=== PATIENT | female | born 1985 | race Caucasian/White ===

== ENCOUNTER → 2016-12-09 | Outpatient (CLI) | payer BC ==
--- NOTE | 2016-12-09 08:15 | US ---
EXAMINATION TYPE: US OB anatomy transabd DATE OF EXAM: 12/09/2016 7:43 AM COMPARISON: None CLINICAL HISTORY: O36.62X0 Large for dates TECHNIQUE: OBTA GESTATIONAL AGE / DATING Physician Established: (18 weeks/0 days) EDC: 05/12/2017 Dates by LMP: Unknown Dates by First Scan: RAND BUTTER here Dates by Current Scan: (18 weeks/1 days) EDC: 05/11/2017 SURVEY IUP: Single PLACENTA: Anterior PREVIA: Marginal CARLOS: 12.3 cm Normal CERVICAL LENGTH (transabdominal: norm > 3.0cm): 4.2cm BIOMETRY PRESENTATION: Variable LIE: Longitudinal BPD: 4.0 cm 18 weeks / 1 days HC: 14.5 cm 17 weeks / 5 days AC: 13.1 cm 18 weeks / 4 days FL: 2.7 cm 18 weeks / 1 days ESTIMATED WEIGHT IN GRAMS: 235 grams ESTIMATED WEIGHT IN LBS/OZS: 0 lbs. 8 oz. WEIGHT PERCENTAGE BASED ON ESTABLISHED DATES: 66% HC/AC: 1.1 Normal FL/AC: 20.5 Normal HEART RATE: 145 bpm RHYTHM: Normal ANATOMY SEEN (within normal limits): * Lateral Vent (< 1 cm) 0.6 cm * Cisterna Magna (< 1.1 cm) 0.3 cm * Nuchal Fold (< 0.6 cm) 0.2 cm * Cerebellum (varies with age) 1.8 cm Choroid Plexus (bilateral) Midline Falx Cavus Septi Pellucidi Four Chamber Heart Outflow tracts: LVOT/RVOT Stomach Situs Nose / Lips Kidneys (bilateral) Bladder Cord Insert Three Vessel Cord Arms (bilateral) Legs (bilateral) ANATOMY NOT SEEN: Diaphragm Longitudinal Spine Transverse Spine TECHNOLOGIST IMPRESSION: Viable 18w1d fetus seen with normal growth growth, patient does need to com e back to assess spine, diaphragm and recheck placenta postioning. OB callback appt is for 12/28/2016. Single live intrauterine gestation is noted. heart tones are regular measure 145 bpm which is w ithin normal limits. A variable presentation to fetus is seen during real-time scanning. There is no ultrasound evidence for placenta previa. Placenta is near cervical os and felt marginal in position c urrently. Amniotic fluid index is within normal limits. biometry measurements are within normal limits as detailed above. Detailed anatomical survey sh ows no suspicious abnormality during real-time scanning though visualization of diaphragm and spine i n 2 views is noted suboptimal per technologist. Saved images also do not show kidneys well which some times happens in the early second trimester. IMPRESSION: As above
== END | disposition home or self-care (01) ==
LOC: RADUSWWP 06:58
PROVIDERS: ATTEND Obstetrics & Gynecology
DX: O36.62X0 Maternal care for excessive fetal growth, second trimester, not applicable or unspecified (principal); Z3A.18 18 weeks gestation of pregnancy
CPT/HCPCS: 76811

== ENCOUNTER → 2016-12-28 | Outpatient (CLI) | payer BC ==
--- NOTE | 2016-12-28 09:34 | US ---
EXAMINATION TYPE: US OB Call Back DATE OF EXAM: 12/28/2016 8:19 AM COMPARISON: 12/09/2016 CLINICAL HISTORY: OB Callback Spine. GESTATIONAL AGE / DATING Dates by Initial Survey Scan: (20 weeks/5 days) EDC: 05/12/2017 HEART RATE: 160 bpm RHYTHM: normal ANATOMY SEEN (second anatomic survey look): Longitudinal Spine: wnl Transverse Spine: wnl Diaphragms not evaluated. Placenta was not evaluated. TECHNOLOGIST IMPRESSION: Spine seen with skin line and appears wnl IMPRESSION: Additional views for spine were obtained as described
== END | disposition home or self-care (01) ==
LOC: RADUSWWP 07:56
PROVIDERS: ATTEND Obstetrics & Gynecology
DX: Z36 Encounter for antenatal screening of mother (principal)

== ENCOUNTER → 2016-12-29 | Outpatient (CLI) | payer BC | LOC: LABWHC1 09:31 | PROVIDERS: ATTEND Obstetrics & Gynecology | DX: R00.2 Palpitations (principal) | CPT/HCPCS: 36415; 84439; 84443 ==

== ENCOUNTER 2017-01-17 10:53 | Emergency (ER) | payer BC ==
[2017-01-17] MEDS ORDERED: SODIUM CHLORIDE 0.9% 1,000 ML IV STA (11:35)
[2017-01-17] MEDS ORDERED: SODIUM CHLORIDE 0.9% 500 ML IV STA (11:35)
--- NOTE | 2017-01-17 11:42 | ED ---
General Adult HPI - General Chief complaint: Extremity Problem,Nontraumatic Stated complaint: LEG CRAMPING AND SWOLLEN, 23 WEEKS PREG Time Seen by Provider: 01/17/17 11:23 Source: patient, family, RN notes reviewed, old records reviewed Mode of arrival: ambulatory Limitations: no limitations - History of Present Illness Initial comments: Chief complaint history of present illness a 31-year-old female here with family. The patient has several complaints the first of which is headache has not gotten much better with Tylenol for the past 5 days. No stiff neck or fever. Also complaint of mild shortness of breath on again off again for 6 days. Also some numbness and mild swelling to her left lower extremity. Discomfort to the calf. Mildly positive Homans sign but discomfort more laterally than medially. No injuries. The patient's also approximately 24 weeks . No abdominal pain no vaginal discharge no bleeding. - Related Data Home Medications Medication Instructions Recorded Confirmed Nitrofurantoin Monohyd/M-Cryst 100 mg PO Q12HR 01/17/17 01/17/17 [Macrobid] Pnv with Ca,No.72/Iron/FA 1 tab PO DAILY 01/17/17 01/17/17 [ Plus Tablet] Previous Rx's Medication Instructions Recorded Acetaminophen-Codeine 300-30mg 1 tab PO Q8H PRN #10 tablet 01/17/17 [Tylenol #3] Allergies Allergy/AdvReac Type Severity Reaction Status Date / Time cefaclor [From Ceclor] AdvReac Unknown Verified 01/17/17 13:08 Childhood Penicillins AdvReac Unknown Verified 01/17/17 13:08 Childhood Review of Systems ROS Statement: Those systems with pertinent positive or pertinent negative responses have been documented in the HPI. Review of systems no visual acuity changes mild headache. No stiff neck no chest pain but slightly short of breath for approximately 6 days. No abdominal pain no nausea vomiting diarrhea or urinary problems. Mild swelling and mild discomfort with mild numbness to her left calf from her knee to her foot. All systems are reviewed. Past medical problems none. Surgeries tonsils adenoids and a melanoma removed on her right flank 5 years ago. Family history no cancers. Patient has ALLERGIES to cefaclor and penicillins a cause hives. She does smoke strongly encouraged to stop. Denies alcohol use ROS Other: All systems not noted in ROS Statement are negative. Past Medical History Past Medical History: No Reported History, Cancer Additional Past Medical History / Comment(s): SKIN History of Any Multi-Drug Resistant Organisms: None Reported Past Surgical History: Adenoidectomy, Tonsillectomy Additional Past Surgical History / Comment(s): melanoma Past Psychological History: No Psychological Hx Reported Smoking Status: Current every day smoker Past Alcohol Use History: None Reported, Rare Past Drug Use History: None Reported General Exam - General Exam Comments Initial Comments: General: The patient is awake and alert, several complaints of mild headache, slight short of breath, discomfort now swelling left leg. Vital signs show temperature 97.6 pulse 108 respiratory rate 16 pulse ox 99% room air blood pressure 135/78. Mildly elevated systolic noted. Patient will be following up with her family physician this week. Eye: Pupils are equal, round and reactive to light, extra-ocular movements are intact ; there is normal conjunctiva bilaterally. No signs of icterus. Ears, nose, mouth and throat: There are moist mucous membranes and no oral lesions. Neck: The neck is supple, there is no tenderness . Cardiovascular: Tachycardic heart rate, 108. No murmur, rub or gallop is appreciated. Respiratory: Lungs are clear to auscultation, respirations are non-labored, breath sounds are equal. No wheezes, stridor, rales, or rhonchi. Gastrointestinal: Soft, non-distended, non-tender abdomen without masses or organomegaly noted. There is no rebound or guarding present. No CVA tenderness. Bowel sounds are unremarkable. Uterus palpable just above the umbilicus. heart tones normal per nurse. Back: There is no tenderness to palpation in the midline. There is no obvious deformity. No rashes noted. 5 cm healed scar right flank where she had a melanoma removed 5 years ago. Musculoskeletal: Neurovascular status of both upper or lower extremities normal. Left leg slightly more swollen than the right. Mildly positive Homans sign more to the lateral aspect of the calf. No swelling to the joints. Neurological: No neuro deficits complained of more noted on examination. Skin is warm and dry and no rashes or lesions are noted. Limitations: no limitations Course Vital Signs 01/17/17 11:00 Temperature 97.6 F Pulse Rate 108 H Respiratory 16 Rate Blood Pressure 135/78 O2 Sat by Pulse 99 Oximetry Medical Decision Making - Medical Decision Making Medical decision making the patient's white count 14.7 hemoglobin 11 hematocrit 33 with an INR 1.0. D-dimer mildly elevated at 0.72, potassium 3.6 with a BUN of 5 creatinine 0.49 the GFR greater than 60. Glucose 83. Troponin less than 0.012. Ultrasound of the left leg was done and reviewed by radiologist his final impression is negative for DVT left leg. No diagnostic evidence of DVT is visualized. As read by Dr. Bryan Patient had an EKG done heart rate only 81 with normal sinus rhythm. Reexamination patient states that she's less short of breath when she initially came in. We did discuss the negative ultrasound of the leg i.e. negative for DVT. There is no wheezing. She will be given some Tylenol threes for the headache with Tylenol is not strong enough at this time. Patient strongly encouraged stop smoking. Follow-up with family physician. If she develops shortness of breath, increased heart rate or more swelling to her legs which is been told to keep elevated she is to return emergency room. Otherwise follow- up with family physician and her [facility] - Lab Data Result diagrams: 01/17/17 12:12 01/17/17 12:12 Lab Results 01/17/17 01/17/17 01/17/17 Range/Units 12:12 12:12 12:12 WBC 14.7 H (3.8-10.6) k/uL RBC 3.61 L (3.80-5.40) m/uL Hgb 11.3 L (11.4-16.0) gm/dL Hct 33.0 L (34.0-46.0) % MCV 91.5 (80.0-100.0) fL MCH 31.2 (25.0-35.0) pg MCHC 34.1 (31.0-37.0) g/dL RDW 13.5 (11.5-15.5) % Plt Count 317 (150-450) k/uL Neutrophils % 74 % Lymphocytes % 18 % Monocytes % 4 % Eosinophils % 2 % Basophils % 0 % Neutrophils # 10.9 H (1.3-7.7) k/uL Lymphocytes # 2.7 (1.0-4.8) k/uL Monocytes # 0.6 (0-1.0) k/uL Eosinophils # 0.2 (0-0.7) k/uL Basophils # 0.0 (0-0.2) k/uL PT (9.0-12.0) sec INR (<1.1) APTT (22.0-30.0) sec D-Dimer (<0.60) mg/L FEU Sodium 140 (137-145) mmol/L Potassium 3.6 (3.5-5.1) mmol/L Chloride 109 H (98-107) mmol/L Carbon Dioxide 22 (22-30) mmol/L Anion Gap 9 mmol/L BUN 5 L (7-17) mg/dL Creatinine 0.49 L (0.52-1.04) mg/dL Est GFR (MDRD) Af Amer >60 (>60 ml/min/1.73 sqM) Est GFR (MDRD) Non-Af >60 (>60 ml/min/1.73 sqM) Glucose 83 (74-99) mg/dL Calcium 9.2 (8.4-10.2) mg/dL Total Bilirubin 0.3 (0.2-1.3) mg/dL AST 19 (14-36) U/L ALT 28 (9-52) U/L Alkaline Phosphatase 79 (38-126) U/L Total Creatine Kinase 27 L (30-135) U/L CK-MB (CK-2) <0.2 (0.0-2.4) ng/mL CK-MB (CK-2) Rel Index Troponin I <0.012 (0.000-0.034) ng/mL Total Protein 6.0 L (6.3-8.2) g/dL Albumin 3.2 L (3.5-5.0) g/dL 01/17/17 Range/Units 12:12 WBC (3.8-10.6) k/uL RBC (3.80-5.40) m/uL Hgb (11.4-16.0) gm/dL Hct (34.0-46.0) % MCV (80.0-100.0) fL MCH (25.0-35.0) pg MCHC (31.0-37.0) g/dL RDW (11.5-15.5) % Plt Count (150-450) k/uL Neutrophils % % Lymphocytes % % Monocytes % % Eosinophils % % Basophils % % Neutrophils # (1.3-7.7) k/uL Lymphocytes # (1.0-4.8) k/uL Monocytes # (0-1.0) k/uL Eosinophils # (0-0.7) k/uL Basophils # (0-0.2) k/uL PT 10.3 (9.0-12.0) sec INR 1.0 (<1.1) APTT 23.3 (22.0-30.0) sec D-Dimer 0.72 H (<0.60) mg/L FEU Sodium (137-145) mmol/L Potassium (3.5-5.1) mmol/L Chloride (98-107) mmol/L Carbon Dioxide (22-30) mmol/L Anion Gap mmol/L BUN (7-17) mg/dL Creatinine (0.52-1.04) mg/dL Est GFR (MDRD) Af Amer (>60 ml/min/1.73 sqM) Est GFR (MDRD) Non-Af (>60 ml/min/1.73 sqM) Glucose (74-99) mg/dL Calcium (8.4-10.2) mg/dL Total Bilirubin (0.2-1.3) mg/dL AST (14-36) U/L ALT (9-52) U/L Alkaline Phosphatase (38-126) U/L Total Creatine Kinase (30-135) U/L CK-MB (CK-2) (0.0-2.4) ng/mL CK-MB (CK-2) Rel Index Troponin I (0.000-0.034) ng/mL Total Protein (6.3-8.2) g/dL Albumin (3.5-5.0) g/dL Disposition Clinical Impression: Headache Disposition: HOME SELF-CARE Condition: Stable Instructions: Tension Headache (ED) Additional Instructions: Take Tylenol 3 for headaches. Follow-up with family physician and [facility]. Stop smoking soon as he can. If he develops shortness of breath or worsening of discomfort. Extremities return emergency room Prescriptions: Acetaminophen-Codeine 300-30mg [Tylenol #3] 1 tab PO Q8H PRN #10 tablet PRN Reason: Pain Time of Disposition: 14:08
[2017-01-17 12:23] LABS: Basophils % (A) 0 %; CHCM 35.2; Eosinophils # (A) 0.2 k/uL (0-0.7); Eosinophils % (A) 2 %; HDW 2.65; HGB 11.3 gm/dL (11.4-16.0); Luc # (Auto) 0.27; Luc % (Auto) 2; Lymphocytes # (A) 2.7 k/uL (1.0-4.8); Lymphocytes % (A) 18 %; MCH 31.2 pg (25.0-35.0); MCHC 34.1 g/dL (31.0-37.0); MCV 91.5 fL (80.0-100.0); Mean Platelet Volume 7.5; Monocytes # (A) 0.6 k/uL (0-1.0); Monocytes % (A) 4 %; Neutrophils # (A) 10.9 k/uL (1.3-7.7); Neutrophils % (A) 74 %; RBC 3.61 m/uL (3.80-5.40); RDW 13.5 % (11.5-15.5); WBC 14.7 k/uL (3.8-10.6); WBC (Perox) 15.18
[2017-01-17 12:37] LABS: Partial Thromboplastin Time 23.3 sec (22.0-30.0); Prothrombin Time 10.3 sec (9.0-12.0)
[2017-01-17 12:38] LABS: ALT 28 U/L (9-52); AST 19 U/L (14-36); Alkaline Phosphatase 79 U/L (38-126); Anion Gap 9 mmol/L; Blood Urea Nitrogen 5 mg/dL (7-17); Calcium 9.2 mg/dL (8.4-10.2); Carbon Dioxide 22 mmol/L (22-30); Chloride 109 mmol/L (98-107); Glucose 83 mg/dL (74-99); Non-African American GFR(MDRD) >60 (>60 ml/min/1.73 sqM); Potassium 3.6 mmol/L (3.5-5.1); Sodium 140 mmol/L (137-145); Total Bilirubin 0.3 mg/dL (0.2-1.3)
--- NOTE | 2017-01-17 12:43 | US ---
EXAMINATION TYPE: US venous doppler duplex LE LT DATE OF EXAM: 01/17/2017 12:36 PM COMPARISON: NONE CLINICAL HISTORY: Enough legs mildly swollen, numb. Patient states left leg feels numb and is swollen SIDE PERFORMED: Left VESSELS IMAGED: External Iliac Vein (EIV) Common Femoral Vein Deep Femoral Vein Greater Saphenous Vein * Femoral Vein Popliteal Vein Proximal Calf Veins (* superficial vessels) patient is approximately 26 weeks . Left Leg: Negative for DVT IMPRESSION: 1. No diagnostic evidence of DVT as visualized
[2017-01-17 12:45] LABS: Creatine Kinase 27 U/L (30-135)
[2017-01-17 12:57] LABS: Creatine Kinase MB <0.2 ng/mL (0.0-2.4); Troponin I <0.012 ng/mL (0.000-0.034)
[2017-01-17] MEDS ORDERED: Acetaminophen-Codeine 300-30mg TAB PO STA (14:07)
[2017-01-17 14:20] VITALS: BP 121/65; PULSE 86; RESP 18; TEMP 96.8
== END 2017-01-17 14:19 | disposition home or self-care (01) ==
LOC: EC 10:53
DX: O26.892 Other specified pregnancy related conditions, second trimester (principal); O99.332 Smoking (tobacco) complicating pregnancy, second trimester; R51 Headache; M79.89 Other specified soft tissue disorders; R20.0 Anesthesia of skin; F17.200 Nicotine dependence, unspecified, uncomplicated; Z85.820 Personal history of malignant melanoma of skin; Z88.0 Allergy status to penicillin; Z3A.24 24 weeks gestation of pregnancy; Z88.1 Allergy status to other antibiotic agents
CPT/HCPCS: 36415; 80053; 82550; 82553; 84484; 85025; 85379; 85610; 85730; 93005; 96360; 96361; 99284

== ENCOUNTER → 2017-02-01 | Outpatient (CLI) | payer BC ==
[2017-02-01 11:57] LABS: CH 31.6; CHCM 33.9; HCT 32.8 % (34.0-46.0); HDW 2.69; HGB 11.2 gm/dL (11.4-16.0); MCH 31.9 pg (25.0-35.0); MCV 93.8 fL (80.0-100.0); Mean Platelet Volume 7.8; WBC 17.5 k/uL (3.8-10.6)
== END ==
LOC: LABWHC1 10:35
PROVIDERS: ATTEND Obstetrics & Gynecology
DX: Z34.92 Encounter for supervision of normal pregnancy, unspecified, second trimester (principal); Z3A.00 Weeks of gestation of pregnancy not specified
CPT/HCPCS: 36415; 82950; 85027

== ENCOUNTER 2017-02-16 02:54 | Observation (INO) | payer BC ==
[2017-02-16 03:17] LABS: Appearance,Urine Clear (Clear); Bacteria,Urine Moderate /hpf; Bilirubin,Urine Negative (Negative); Glucose,Urine (UA) Negative (Negative); Ketones,Urine 1+ (Negative); Leukocyte Esterase,Urine Trace (Negative); Mucus,Urine Rare /hpf; Nitrite,Urine Negative (Negative); Particle Count 4860; Protein,Urine Trace (Negative); RBC,Urine 2 /hpf (0-5); Specific Gravity,Urine 1.007 (1.001-1.035); Squamous Epithelial Cell,Urine 2 /hpf (0-4); UA Billing (MACRO vs. MICRO) MICRO; Urobilinogen,Urine <2.0 mg/dL (<2.0); WBC,Urine 4 /hpf (0-5)
[2017-02-16] MEDS ORDERED: BUTORPHANOL 1 MG/ML 1 ML VIAL IV PRN (03:40)
[2017-02-16] MEDS ORDERED: LACTATED RINGERS 1,000 ML IV SCH ×2 (03:45→04:00)
[2017-02-16] MEDS: CLINDAMYCIN 600 MG in DEXTROSE 5% IN WATER 50 ML IVPB SCH ×4 (04:16→13:09)
[2017-02-16 04:40] VITALS: BP 130/78; PULSE 97; RESP 15; TEMP 96.9
[2017-02-16 04:42] VITALS: BMI 28.0
--- NOTE | 2017-02-16 05:42 | US ---
EXAM: US Retroperitoneal Limited, Renal. CLINICAL HISTORY: Reason: rule out kidney stones TECHNIQUE: Real-time ultrasound of the retroperitoneum (limited) with image documentation. COMPARISON: CT abdomen pelvis 10/16/15 FINDINGS: Right kidney: 11.0 x 4.6 x 4.8 cm No calculus detected sonographically. No hydronephrosis. Left kidney: 12.3 x 6.4 x 5.2 cm No calculus detected sonographically.. No hydronephrosis. IMPRESSION: No renal calculus detected sonographically. No hydronephrosis.
--- NOTE | 2017-02-16 05:50 | US ---
EXAM: US After First Trimester, Transabdominal. CLINICAL HISTORY: Reason: abdominal pain, previa TECHNIQUE: Real-time transabdominal obstetrical ultrasound of the maternal pelvis and a second or third trimester with image documentation. COMPARISON: Pelvic ultrasound, 12/09/16 and 12/28/16 FINDINGS: Fetus: Nye . Heart rate: heart rate 153 bpm. Presentation: Breech presentation. Placenta: Placenta anterior. No evidence of placenta previa. Amniotic fluid: CARLOS within normal limits, 13.1 cm. Anatomy: Intracranial/face anatomy not seen. Spinal anatomy not seen. Abdominal anatomy not seen. Extremities not seen. Four-chamber heart not seen. Umbilical cord not seen. BIOMETRICS Gestational age by US: 28 weeks 1 day, congruent with provided dates (27 weeks 6 days). EFW: 1205 g (2 lbs. 11 oz.) BPD: 7.2 cm, 28 weeks 5 days HC: 27.2 cm, 29 weeks 4 days AC: 24.1 cm, 28 weeks 3 days FL: 5.2 cm, 27 weeks 5 days MATERNAL: Uterus: Unremarkable. Cervix: Cervical length within normal limits, measuring 4 cm. Free fluid: No free fluid. IMPRESSION: 1. Nye in breech presentation. No evidence of placenta previa. 2. Ultrasound measurements compatible with provided dates.
[2017-02-16] MEDS: Acetaminophen-Codeine 300-30mg TAB PO PRN ×2 (08:14→12:44)
--- NOTE | 2017-02-16 13:32 | P.HPOB ---
History of Present Illness H&P Date: 02/16/17 Chief Complaint: Left flank pain This is a 31-year-old female 2 para 1 with an estimated date of confinement of 05/12/2017, estimated gestational age of 28 weeks who presented to labor and delivery with complaints of left flank pain that wrapped around to the left frontal abdomen that began last night and became stronger to the point that she was vomiting. She denied any urinary urgency or painful urination. She admitted to good movement. She denied any contractions. course has been complicated by newly diagnosed gestational diabetes and she has an appointment with maternal medicine this week to start checking sugars. Obstetrical history: . History of 1 vaginal delivery at term with no complications. Gynecologic history: No history of sexual transmitted diseases. Review of Systems Constitutional: Denies chills, Denies fever Cardiovascular: Reports palpitations, Reports shortness of breath Respiratory: Denies cough Gastrointestinal: Reports abdominal pain (Left lower quadrant abdominal pain), Reports nausea, Reports vomiting Genitourinary: Reports pelvic pain (Left pelvic), Reports , Denies abnormal vaginal bleeding Musculoskeletal: Reports low back pain (Left flank pain) Neurological: Denies numbness, Denies weakness Past Medical History Past Medical History: Cancer (History of melanoma on her back) Additional Past Medical History / Comment(s): SKIN History of Any Multi-Drug Resistant Organisms: None Reported Past Surgical History: Adenoidectomy, Tonsillectomy Additional Past Surgical History / Comment(s): melanoma excision; removal of the jaw cyst Past Anesthesia/Blood Transfusion Reactions: No Reported Reaction Past Psychological History: No Psychological Hx Reported Smoking Status: Current every day smoker Past Alcohol Use History: None Reported, Rare Past Drug Use History: None Reported - Past Family History Mother Family Medical History: No Reported History Medications and Allergies Home Medications Medication Instructions Recorded Confirmed Type Pnv with Ca,No.72/Iron/FA 1 tab PO DAILY 01/17/17 01/17/17 History [ Plus Tablet] Allergies Allergy/AdvReac Type Severity Reaction Status Date / Time cefaclor [From Ceclor] AdvReac Unknown Verified 02/16/17 03:01 Childhood Penicillins AdvReac Unknown Verified 02/16/17 03:01 Childhood Exam Osteopathic Statement: *. No significant issues noted on an osteopathic structural exam other than those noted in the History and Physical/Consult. - Vital Signs Vital signs: Vital Signs Temp Pulse Resp BP Pulse Ox 02/16/17 03:02 96.9 F L 97 15 130/78 100 Intake and Output 02/15/17 02/16/17 02/16/17 22:59 06:59 14:59 Output Total 600 Balance -600 Output: Urine 600 Other: Weight 71.668 kg HEENT: Within normal limits Heart: Regular rate and rhythm Lungs: Clear to auscultation bilaterally Abdomen: With fundus nontender. Tenderness is noted in the left flank and left lower quadrant areas. No guarding or rebound is noted. heart tones: Reactive Contractions: None Extremities: Negative Homans, some mild edema Results Abnormal Lab Results - Last 24 Hours (Table) 02/16/17 Range/Units 02:50 Urine Protein Trace H (Negative) Urine Ketones 1+ H (Negative) Urine Blood Trace H (Negative) Ur Leukocyte Esterase Trace H (Negative) Urine Bacteria Moderate H (None) /hpf Urine Mucus Rare H (None) /hpf Assessment and Plan (1) Acute left flank pain Narrative/Plan: Probable kidney stone Status: Acute Plan: Will admit and IV hydrate along with IV pain medications. Will strain all urine. Nonstress test every shift. Kidney ultrasound is performed and is normal.
--- NOTE | 2017-02-16 13:35 | P.DS ---
Providers Date of admission: 02/16/17 03:50 Expected date of discharge: 02/16/17 Attending physician: Gordon Thornton Primary care physician: Gordon Thornton - Discharge Diagnosis(es) (1) Acute left flank pain Current Visit: Yes Status: Acute Hospital Course: The patient was admitted and given IV hydration along with one dose of IV Stadol area her pain did decrease significantly. She has required a couple doses of Tylenol No. 3 which does take away most of the pain. She has passed a little bit of sediment but no stone yet. She is ambulating and moving around. She is tolerating liquids but doesn't have much better appetite at this time. She feels comfortable going home and feels that she can do the same thing at home that she is doing in the hospital and since the Tylenol No. 3 is helping with her pain she would prefer to be at home. Kidney ultrasound was normal and obstetrical ultrasound was normal. Urinalysis did show blood and ketone. Patient Condition at Discharge: Stable Plan - Discharge Summary New Discharge Prescriptions: Acetaminophen-Codeine 300-30mg [Tylenol w/codeine #3] 1 - 2 each PO Q4HR PRN # 30 tab PRN Reason: Pain Discharge Medication List Pnv with Ca,No.72/Iron/FA [ Plus Tablet] 1 tab PO DAILY 01/17/17 [ History] Acetaminophen-Codeine 300-30mg [Tylenol w/codeine #3] 1 - 2 each PO Q4HR PRN # 30 tab 02/16/17 [Rx] Follow up Appointment(s)/Referral(s): Natalie Ravi DO [Doctor of Osteopathic Medicine] - 1 Week Activity/Diet/Wound Care/Special Instructions: Patient encouraged to ambulate. She is advised to strain all urine. She is advised to return to the hospital if any further pain that requires more than Tylenol 3 or significant nausea vomiting. She is advised to keep her appointment with maternal medicine on . She will return to the office to see me in one week. Discharge Disposition: HOME SELF-CARE
== END 2017-02-16 14:02 | disposition home or self-care (01) ==
LOC: FBPOP 02:54 → 4FBP 03:50
PROVIDERS: ADMIT Obstetrics & Gynecology; ATTEND Obstetrics & Gynecology
DX: O26.893 Other specified pregnancy related conditions, third trimester (principal); Z3A.28 28 weeks gestation of pregnancy; O24.419 Gestational diabetes mellitus in pregnancy, unspecified control; Z85.820 Personal history of malignant melanoma of skin; O99.333 Smoking (tobacco) complicating pregnancy, third trimester; F17.200 Nicotine dependence, unspecified, uncomplicated; Z88.0 Allergy status to penicillin; Z88.1 Allergy status to other antibiotic agents
CPT/HCPCS: 99213; 96361; 96365; 81001; 76805; 76770; G0378; J0595

== ENCOUNTER → 2017-03-09 | Outpatient (CLI) | payer BC ==
[2017-03-09 12:22] LABS: Hemoglobin A1C 5.3 % (4.2-6.1)
== END | disposition home or self-care (01) ==
LOC: LABWHC1 10:54
PROVIDERS: ATTEND Pediatrics Neonatal-Perinatal Medicine
DX: O24.419 Gestational diabetes mellitus in pregnancy, unspecified control (principal); Z3A.00 Weeks of gestation of pregnancy not specified
CPT/HCPCS: 36415; 82947; 83036

== ENCOUNTER 2017-04-18 17:54 | Outpatient (CLI) | payer BC ==
[2017-04-18 19:03] VITALS: BP 131/76; PULSE 107; RESP 20; TEMP 97.4
--- NOTE | 2017-04-19 06:43 | P.MSEPDOC ---
Presenting Problems - Arrival Data Date of Arrival on Unit: 04/18/17 Time of Arrival on Unit: 17:54 Mode of Transport: Ambulatory - Complaint OB-Reason for Admission/Chief Complaint: NST Medical History - Information : 2 Para: 1 Term: 1 : 0 Abortions: Spontaneous or Elective: 0 Number of Living Children: 1 - Gestational Age Expected Date of Delivery: 05/12/17 Gestational Age by YESIKA (wks/days): 36 Weeks and 5 Days - History Complications: GDM, Smoker Review of Systems - Review of Systems Constitutional: No problems Breast: No problems ENT: No problems Cardiovascular: No problems Respiratory: No problems Gastrointestinal: No problems Genitourinary: No problems Musculoskeletal: No problems Neurological: No problems Skin: No problems Comment: tonsil 2002 melanoma lower back 2012, cyst jaw 2013 Vital Signs - Temperature Temperature: 97.4 F Temperature Source: Skin - Pulse Right Brachial Pulse Rate: 107 Pulse Assessment Method: Automatic Cuff - Respirations Respiratory Rate: 20 - Blood Pressure Right Arm Blood Pressure: 131/76 Blood Pressure Mean: 94 Blood Pressure Source: Automatic Cuff Medical Screen Scoring (Pre) - Cervical Exam Dilation: Exam Deferred Membranes: Intact - Uterine Contractions Frequency: > 5 minutes apart = 1 - Maternal Vital Signs Maternal Temperature: N/A Maternal Blood Pressure: N/A Signs of Preeclampsia: N/A Maternal Respirations: N/A - Maternal Trauma Maternal Trauma: N/A - Assessment Baseline FHR: 130 Heart Rate - NICHD Category: Category I (Normal) = 0 NST: Reactive - Total Score Total Score (Pre): 1 - Level of Risk Level of Risk: Low (0-5) Physician Notification (Pre) - Physician Notified Physician Notified Date: 04/18/17 Physician Notified Time: 18:00 Physician/Practitioner Notifed:: dr velarde Spoke With: dr velarde Medical Screen Scoring (Post) - Uterine Contractions Frequency: > 5 minutes apart = 1 - Assessment Heart Rate - NICHD Category: Category I (Normal) = 0 NST: Reactive - Total Score Total Score (Post): 1 - Post Treatment Level of Risk Post Treatment Level of Risk: Low (0-5) Disposition - Disposition OB Disposition: Triage, Discharge to home, Written follow up instructions reviewed Discharge Date: 04/18/17 Discharge Time: 18:40 I agree with the RN Medical Screening Exam: Yes Risk & Benefit of care provided described in d/c instruction: Yes Diagnosis: GESTATIONAL DIABETES IN , INSULIN CONTROLLED
== END 2017-04-18 18:40 | disposition home or self-care (01) ==
LOC: FBPOP 17:54
PROVIDERS: ATTEND Obstetrics & Gynecology
DX: O24.414 Gestational diabetes mellitus in pregnancy, insulin controlled (principal); Z3A.36 36 weeks gestation of pregnancy
CPT/HCPCS: 59025; 99213

== ENCOUNTER 2017-05-05 05:59 | Inpatient (IN) | payer BC ==
--- NOTE | 2017-05-04 20:26 | P.HPOB ---
History of Present Illness H&P Date: 05/04/17 Chief Complaint: Induction of labor This is a 31-year-old female 2 para 1 with an estimated date of confinement of 05/12/2017, estimated gestational age of 39-0/7 weeks, who presents to labor and delivery for induction of labor. She admits to good movement. She has been feeling regular strong contractions for the last 2 days. course has been complicated by gestational diabetes controlled with high-grade. She also was diagnosed with a arrhythmia with premature atrial contractions and has been followed by maternal- medicine. This actually has improved over the last few weeks. labs: HIV-nonreactive Hemoglobin-12.4 Blood type-O+ Random glucose-76 Hepatitis B surface antigen-negative Syphilis antibody-negative Rubella-immune Obstetrical ultrasound-normal anatomy One hour Glucola-187 Group B streptococcus-negative OB history: . History of 1 vaginal delivery at term. CARBONATOR history: No history of sexual transmitted diseases. Social history: She is single. She works as a supervisor self service store. Review of Systems Constitutional: Denies chills, Denies fever Eyes: denies blurred vision, denies pain Ears, nose, mouth and throat: Denies headache, Denies sore throat Cardiovascular: Denies chest pain, Denies shortness of breath Respiratory: Denies cough Gastrointestinal: Reports abdominal pain (Contractions) Genitourinary: Reports pelvic pain, Reports Musculoskeletal: Reports low back pain Integumentary: Denies pruritus, Denies rash Neurological: Denies numbness, Denies weakness Psychiatric: Denies anxiety, Denies depression Past Medical History Past Medical History: Cancer (History of melanoma on her back) Additional Past Medical History / Comment(s): SKIN History of Any Multi-Drug Resistant Organisms: None Reported Past Surgical History: Adenoidectomy, Tonsillectomy Additional Past Surgical History / Comment(s): melanoma excision; removal of the jaw cyst Past Anesthesia/Blood Transfusion Reactions: No Reported Reaction Past Psychological History: Anxiety Smoking Status: Current every day smoker Past Alcohol Use History: None Reported Past Drug Use History: None Reported - Past Family History Mother Family Medical History: Hypertension, Thyroid Disorder Medications and Allergies Home Medications Medication Instructions Recorded Confirmed Type Pnv,Calcium 72/Iron/Folic Acid 1 tab PO DAILY 01/17/17 04/18/17 History [ Plus Tablet] glyBURIDE [Diabeta] 2.5 mg PO AC-BID 04/18/17 04/18/17 History Allergies Allergy/AdvReac Type Severity Reaction Status Date / Time cefaclor [From Ceclor] AdvReac Unknown Verified 04/18/17 18:18 Childhood Penicillins AdvReac Unknown Verified 04/18/17 18:18 Childhood Exam Osteopathic Statement: *. No significant issues noted on an osteopathic structural exam other than those noted in the History and Physical/Consult. HEENT: Within normal limits Heart: Regular rate and rhythm Lungs: Clear to auscultation bilaterally Abdomen: Cervix: 1 cm/60%/-1 heart tones: 140s by Doppler Extremities: Negative Homans Assessment and Plan (1) 39 weeks gestation of Status: Acute (2) Gestational diabetes mellitus (GDM) Status: Acute Plan: Proceed with oxytocin induction of labor. Will monitor blood sugars closely during labor. Expectant management.
[2017-05-05] MEDS ORDERED: CARBOPROST TROMETHAMINE 250 MCG/ML 1 ML AMP IM PRN (06:22)
[2017-05-05] MEDS ORDERED: METHYLERGONOVINE 0.2 MG/ML 1 ML AMP IM PRN (06:22)
[2017-05-05] MEDS ORDERED: OXYTOCIN 20 UNITS/1000 ML NS 1,000 ML IV SCH ×2 (06:22→11:35)
[2017-05-05] MEDS ORDERED: OXYTOCIN 10 UNIT/ML 1 ML VIAL IM PRN (06:22)
[2017-05-05] MEDS ORDERED: LIDOCAINE 1% (PF) 10 MG/ML (30 ML SDV) SQ PRN (06:22)
[2017-05-05] MEDS ORDERED: LIDOCAINE 1% 20 ML VIAL (10MG/ML) FOR IV START INTRADERMA PRN (06:22)
[2017-05-05] MEDS ORDERED: TERBUTALINE 1 MG/ML VIAL SQ PRN (06:22)
[2017-05-05 06:39] LABS: Basophils # (A) 0.1 k/uL (0-0.2); Basophils % (A) 0 %; CH 30.7; CHCM 34.4; Eosinophils # (A) 0.3 k/uL (0-0.7); Eosinophils % (A) 2 %; HCT 34.7 % (34.0-46.0); HGB 11.8 gm/dL (11.4-16.0); Luc # (Auto) 0.28; Luc % (Auto) 1; Lymphocytes # (A) 3.3 k/uL (1.0-4.8); Lymphocytes % (A) 16 %; MCH 30.5 pg (25.0-35.0); MCV 89.9 fL (80.0-100.0); Mean Platelet Volume 9.1; Monocytes # (A) 0.8 k/uL (0-1.0); Monocytes % (A) 4 %; Neutrophils # (A) 15.8 k/uL (1.3-7.7); Neutrophils % (A) 77 %; RBC 3.86 m/uL (3.80-5.40); RDW 14.8 % (11.5-15.5); WBC 20.6 k/uL (3.8-10.6); WBC (Perox) 20.61
[2017-05-05 06:43] LABS: Glucose,Whole Blood 71 mg/dL (75-99)
[2017-05-05 06:47] VITALS: BMI 29.0
[2017-05-05] MEDS: LACTATED RINGERS 1,000 ML IV SCH ×3 (06:54→09:59)
[2017-05-05] MEDS ORDERED: BUTORPHANOL 1 MG/ML 1 ML VIAL IV PRN (07:47)
[2017-05-05 09:00] LABS: Glucose,Whole Blood 94 mg/dL (75-99)
[2017-05-05] MEDS ORDERED: fentaNYL (PF) 50 MCG/ML 5 ML AMP ONE (09:29)
[2017-05-05] MEDS ORDERED: BUPIVACAINE (PF) 0.25% 30 ML VIAL ONE (09:29)
[2017-05-05] MEDS ORDERED: SODIUM CHLORIDE 0.9% 100 ML BAG ONE (09:29)
[2017-05-05] MEDS ORDERED: BUPIVACAINE (PF) 0.25% 25 ML, fentaNYL (PF) 200 MCG in SODIUM CHLORIDE 0.9% 71 ML EPIDURAL ONE (09:57)
[2017-05-05 10:50] LABS: Glucose,Whole Blood 86 mg/dL (75-99)
[2017-05-05] MEDS ORDERED: LANOLIN CREAM 5 GM TUBE TOPICAL PRN (11:35)
[2017-05-05] MEDS ORDERED: diphenhydrAMINE 50 MG/ML 1 ML VIAL IVP PRN ×2 (11:35)
[2017-05-05] MEDS ORDERED: diphenhydrAMINE 50 MG CAP PO PRN (11:35)
[2017-05-05] MEDS ORDERED: HYDROCORTISONE 2.5% RECTAL CREAM 30 GM TUBE RECTAL PRN (11:35)
[2017-05-05] MEDS ORDERED: ZOLPIDEM 5 MG TAB PO PRN (11:35)
[2017-05-05] MEDS ORDERED: diphenhydrAMINE 25 MG CAP PO PRN (11:35)
[2017-05-05] MEDS ORDERED: Acetaminophen-Codeine 300-30mg TAB PO PRN (11:35)
[2017-05-05] MEDS ORDERED: BENZOCAINE/MENTHOL SPRAY 1 GM/SPRAY AEROSOL TOPICAL PRN (11:35)
[2017-05-05] MEDS ORDERED: ACETAMINOPHEN TAB 325 MG TAB PO PRN (11:35)
[2017-05-05] MEDS ORDERED: SIMETHICONE 80 MG CHEWABLE PO PRN (11:35)
[2017-05-05] MEDS ORDERED: WITCH HAZEL 1 EACH MED..PAD TOPICAL PRN (11:35)
[2017-05-05] MEDS: IBUPROFEN 600 MG TAB PO PRN ×2 (12:31→19:31)
[2017-05-05 12:42] LABS: Hemoglobin A1C 5.4 % (4.2-6.1)
--- NOTE | 2017-05-05 13:04 | P.PROBDLV ---
Vaginal Delivery Note - . Vaginal Delivery Note: The patient progressed to complete dilation after oxytocin induction of labor and artificial rupture membranes with meconium fluid noted. She did receive epidural anesthesia.Once reaching complete dilation, she began pushing. Infant' s head came to a crown.with one further push the 's head delivered across the perineum followed by the anterior shoulder. Nose and mouth were bulb suctioned. With one further push, the remainder the easily delivered and was placed on mother's abdomen. Brisk cry was noted immediately. Cord was clamped and cut and infant was taken to warmer for evaluation. A viable female infant was noted with scores of 9 at 1 minute and 9 at 5 minutes and infant weight of 6 lbs. 9 oz. Placenta delivered shortly thereafter, intact, with a three-vessel cord. Uterus contracted well after oxytocin was given and uterine massage was carried out. Inspection of the perineum revealed some mild bilateral periurethral abrasions but no active bleeding noted. Estimated blood loss is approximately 150 mL's. Both mother and are in stable condition.
[2017-05-05] MEDS ORDERED: DIPH,PERTUS(ACELL)TETVAC-LF 0.5 ML VIAL IM ONE (19:58)
[2017-05-05] MEDS: SENNOSIDES-DOCUSATE SODIUM 1 EACH TAB PO SCH (19:58)
[2017-05-05] MEDS: Acetaminophen-Codeine 300-30mg TAB PO PRN (23:43)
[2017-05-06] MEDS: IBUPROFEN 600 MG TAB PO PRN ×2 (01:43→07:40)
[2017-05-06] MEDS: Acetaminophen-Codeine 300-30mg TAB PO PRN ×2 (06:10→12:04)
[2017-05-06 06:50] LABS: Basophils % (A) 0 %; CH 30.1; CHCM 33.4; Eosinophils # (A) 0.2 k/uL (0-0.7); Eosinophils % (A) 2 %; HCT 31.8 % (34.0-46.0); HDW 3.54; HGB 10.6 gm/dL (11.4-16.0); Luc # (Auto) 0.25; Luc % (Auto) 2; Lymphocytes % (A) 20 %; MCH 30.1 pg (25.0-35.0); MCHC 33.2 g/dL (31.0-37.0); MCV 90.8 fL (80.0-100.0); Mean Platelet Volume 8.3; Monocytes # (A) 0.7 k/uL (0-1.0); Monocytes % (A) 5 %; Neutrophils # (A) 10.7 k/uL (1.3-7.7); Neutrophils % (A) 72 %; Poikilocytosis Slight; RDW 14.5 % (11.5-15.5); WBC (Perox) 16.05
[2017-05-06] MEDS: SENNOSIDES-DOCUSATE SODIUM 1 EACH TAB PO SCH (07:39)
--- NOTE | 2017-05-06 08:30 | P.DS ---
Providers Date of admission: 05/05/17 05:59 Expected date of discharge: 05/06/17 Attending physician: Natalie Ravi Primary care physician: Stated None - Discharge Diagnosis(es) (1) 39 weeks gestation of Current Visit: Yes Status: Acute (2) Gestational diabetes mellitus (GDM) Current Visit: Yes Status: Acute Hospital Course: This is a 31-year-old female 2 para 1 at 39-0/7 weeks who presented for induction of labor secondary to gestational diabetes. She delivered vaginally a viable female infant with scores of 9 at 1 minute and 9 at 5 minutes and infant weight of 6 lbs. 9 oz. on 05/05/2017. Her course has been uncomplicated. She is complaining of some lower back pain today. Lochia is decreasing. Pain is fairly well controlled with ibuprofen and Tylenol 3. She is breast-feeding but baby is spitting up a little bit today. Vital signs are stable. Abdomen is soft with fundus firm and nontender. Extremities show negative Homans. Impression is status post vaginal delivery day #1. Plan is to discharge home later today as long as the baby is doing okay. Routine instructions are given. She will be given prescriptions for ibuprofen, Tylenol No. 3, and a breast pump. She is advised to follow up in the office in 6 weeks for check. She is advised to call the office if she has any further questions or concerns prior to her appointment time. Procedures: Pitocin induction of labor Spontaneous vaginal delivery of a viable female on 05/05/2017 Patient Condition at Discharge: Stable Plan - Discharge Summary New Discharge Prescriptions: New Acetaminophen-Codeine 300-30mg [Tylenol w/codeine #3] 1 each PO Q4HR PRN #30 tab PRN Reason: Mild Pain exceeding Tylenol Ibuprofen [Motrin] 600 mg PO Q6HR PRN #60 tab PRN Reason: Mild Pain Or Fever >= 100.5 Continue Pnv,Calcium 72/Iron/Folic Acid [ Plus Tablet] 1 tab PO DAILY Discontinued glyBURIDE [Diabeta] 2.5 mg PO AC-BID Discharge Medication List Pnv,Calcium 72/Iron/Folic Acid [ Plus Tablet] 1 tab PO DAILY 01/17/17 [ History] Acetaminophen-Codeine 300-30mg [Tylenol w/codeine #3] 1 each PO Q4HR PRN #30 tab 05/06/17 [Rx] Ibuprofen [Motrin] 600 mg PO Q6HR PRN #60 tab 05/06/17 [Rx] Follow up Appointment(s)/Referral(s): Natalie Ravi DO [Doctor of Osteopathic Medicine] - 6 Weeks Activity/Diet/Wound Care/Special Instructions: Instructions 1. Do not begin any exercise program for 3 weeks. 2. Do not resume sexual relations for 3 weeks or longer if uncomfortable. 3. You may take tub baths or showers at any time. 4. You may use tampons if desired after 3 weeks. 5. Keep the area of episiotomy (stitches) clean and dry. 6. If you are not nursing, wear a good fitting, supportive bra during the day and limit fluid intake for at least 1 week to prevent breast engorgement. 7. Call the office, [phone], within the next week to make appointment for your 6 week checkup if it has not already been made. 8. Report any of the following occurrences to the doctor promptly: a. Heavy, excessive bleeding b. Chills, fever c. Burning or frequency of urination d. Pain or redness and breasts if nursing e. Increasing pain or swelling in episiotomy (stitches). In addition to the above instructions, the following additional should be followed: 1. No heavy lifting or straining (exercising) until after 6 week checkup. 2. Keep abdominal incision clean and dry: You may wear a dressing if more comfortable. 3. Make office appointment for 10 days after going home or as instructed by her doctor. Discharge Disposition: HOME SELF-CARE
[2017-05-06 08:55] VITALS: BP 114/70; PULSE 67; RESP 18; TEMP 97.8
== END 2017-05-06 13:50 | disposition home or self-care (01) | DRG 775 ==
LOC: 4FBP 05:59
PROVIDERS: ADMIT Obstetrics & Gynecology; ATTEND Obstetrics & Gynecology
PROC: 10E0XZZ Delivery of Products of Conception, External Approach (ICD-10-PCS; principal; 2017-05-05)
PROC: 10907ZC Drainage of Amniotic Fluid, Therapeutic from Products of Conception, Via Natural or Artificial Opening (ICD-10-PCS; 2017-05-05)
PROC: 3E033VJ Introduction of Other Hormone into Peripheral Vein, Percutaneous Approach (ICD-10-PCS; 2017-05-05)
PROC: 3E0234Z Introduction of Serum, Toxoid and Vaccine into Muscle, Percutaneous Approach (ICD-10-PCS; 2017-05-05)
PROC: 3E0S3NZ Introduction of Analgesics, Hypnotics, Sedatives into Epidural Space, Percutaneous Approach (ICD-10-PCS; 2017-05-05)
DX: O24.425 Gestational diabetes mellitus in childbirth, controlled by oral hypoglycemic drugs (principal); O99.344 Other mental disorders complicating childbirth; F41.9 Anxiety disorder, unspecified; O77.0 Labor and delivery complicated by meconium in amniotic fluid; O99.334 Smoking (tobacco) complicating childbirth; O76 Abnormality in fetal heart rate and rhythm complicating labor and delivery; O99.62 Diseases of the digestive system complicating childbirth; F17.200 Nicotine dependence, unspecified, uncomplicated; M54.5 Low back pain; K21.9 Gastro-esophageal reflux disease without esophagitis; Z3A.39 39 weeks gestation of pregnancy; Z37.0 Single live birth; Z85.820 Personal history of malignant melanoma of skin; Z82.49 Family history of ischemic heart disease and other diseases of the circulatory system; Z83.49 Family history of other endocrine, nutritional and metabolic diseases; Z23 Encounter for immunization; Z88.1 Allergy status to other antibiotic agents; Z88.0 Allergy status to penicillin
CPT/HCPCS: 83036; 85025; 88307; 90715

== ENCOUNTER → 2017-10-27 | Outpatient (CLI) | payer BC ==
--- NOTE | 2017-10-27 08:50 | US ---
EXAMINATION TYPE: US pelvic complete DATE OF EXAM: 10/27/2017 COMPARISON: NONE CLINICAL HISTORY: R10.2 pelvic perineal pain. Pelvic pain, Depo shot 1 month ago TECHNIQUE: Transabdominal (TA) Date of LMP: unknown EXAM MEASUREMENTS: Uterus: 8.0 x 3.8 x 5.0 cm Endometrial Stripe: 0.4 cm Right Ovary: 3.0 x 2.7 x 1.7 cm Left Ovary: 2.9 x 1.7 x 1.6 cm 1. Uterus: Anteverted wnl 2. Endometrium: appears wnl 3. Right Ovary: complex cystic area = 1.8 x 1.6 x 1.7cm 4. Left Ovary: follicles noted 5. Bilateral Adnexa: wnl 6. Posterior cul-de-sac: wnl IMPRESSION: 1. Complex cyst right ovary may reflect a functional ovarian cyst. Consider follow-up study in 6 week s.
--- NOTE | 2017-10-27 08:52 | US ---
EXAMINATION TYPE: US abdomen comp/pelvis limited DATE OF EXAM: 10/27/2017 COMPARISON: NONE CLINICAL HISTORY: R10.2 pelvic perineal pain. Bilateral flank pain, worse on the right. Proteinuria EXAM MEASUREMENTS: Liver Length: 14.9 cm Gallbladder Wall: 0.3 cm CBD: 0.2 cm Spleen: 7.6 cm Right Kidney: 10.0 x 3.7 x 4.2 cm Left Kidney: 11.4 x 5.4 x 4.0 cm Pancreas: visualized portions appear wnl Liver: wnl Gallbladder: non-mobile hyperechoic area = 0.4cm, possible polyp CBD: wnl Spleen: appears wnl Right Kidney: no evidence of hydronephrosis or mass Left Kidney: no evidence of hydronephrosis or mass Upper IVC: wnl Abd Aorta: wnl Bladder: appears wnl Bilateral Jets Seen no IMPRESSION: 1. Findings felt to reflect a small gallbladder polyp.
== END ==
LOC: RADUSWWP 06:56
PROVIDERS: ATTEND Family Medicine
DX: N83.201 Unspecified ovarian cyst, right side (principal); R80.9 Proteinuria, unspecified
CPT/HCPCS: 76700; 76856; 76857

== ENCOUNTER 2017-11-01 14:27 | Emergency (ER) | payer BC, OTHER ==
[2017-11-01 14:56] VITALS: BP 140/91; PULSE 91; RESP 16; TEMP 98
--- NOTE | 2017-11-01 15:00 | ED ---
General Adult HPI - General Stated complaint: head injury-[facility] Time Seen by Provider: 11/01/17 14:39 Source: patient, RN notes reviewed Mode of arrival: ambulatory Limitations: no limitations - History of Present Illness Initial comments: 31-year-old female presents to the emergency department with a chief complaint of head injury. Patient states that on Wednesday she was standing up from underneath her Sugar and hit the top of her head. This time she had a mild headache however the headache has continued to the past few days so she thought that she should. There is been no nausea. She's had some throbbing. She's otherwise been acting normally. She states she was concerned due to the continued headache so she thought that she should be seen. Patient denies any recent fever, chills, shortness of breath, chest pain, back pain, abdominal pain , nausea vomiting, numbness or tingling, dysuria or hematuria, constipation or diarrhea, visual changes, or any other current symptoms. - Related Data Home Medications Medication Instructions Recorded Confirmed Pnv,Calcium 72/Iron/Folic Acid 1 tab PO DAILY 01/17/17 05/05/17 [ Plus Tablet] Previous Rx's Medication Instructions Recorded Acetaminophen-Codeine 300-30mg 1 each PO Q4HR PRN #30 tab 05/06/17 [Tylenol w/codeine #3] Ibuprofen [Motrin] 600 mg PO Q6HR PRN #60 tab 05/06/17 Allergies Allergy/AdvReac Type Severity Reaction Status Date / Time cefaclor [From Ceclor] AdvReac Rash/Hives Verified 05/05/17 06:20 Penicillins AdvReac Unknown Verified 05/05/17 06:20 Childhood Review of Systems ROS Statement: Those systems with pertinent positive or pertinent negative responses have been documented in the HPI. ROS Other: All systems not noted in ROS Statement are negative. Past Medical History Past Medical History: Cancer Additional Past Medical History / Comment(s): SKIN History of Any Multi-Drug Resistant Organisms: None Reported Past Surgical History: Adenoidectomy, Tonsillectomy Additional Past Surgical History / Comment(s): melanoma excision; removal of the jaw cyst Past Anesthesia/Blood Transfusion Reactions: No Reported Reaction Past Psychological History: Anxiety, Depression Smoking Status: Current every day smoker Past Alcohol Use History: None Reported Past Drug Use History: None Reported - Past Family History Mother Family Medical History: Hypertension, Thyroid Disorder Additional Family Medical History / Comment(s): depression General Exam Limitations: no limitations General appearance: alert, in no apparent distress Head exam: Present: atraumatic, normocephalic, normal inspection ENT exam: Present: normal exam, mucous membranes moist Neck exam: Present: normal inspection. Absent: tenderness, meningismus, lymphadenopathy Respiratory exam: Present: normal lung sounds bilaterally. Absent: respiratory distress, wheezes, rales, rhonchi, stridor Cardiovascular Exam: Present: regular rate, normal rhythm, normal heart sounds. Absent: systolic murmur, diastolic murmur, rubs, gallop, clicks Back exam: Present: normal inspection Neurological exam: Present: alert, oriented X3, CN II-XII intact, normal gait, reflexes normal. Absent: motor sensory deficit Psychiatric exam: Present: normal affect, normal mood Skin exam: Present: warm, dry, intact, normal color. Absent: rash Course Vital Signs 11/01/17 14:53 Temperature 98.0 F Pulse Rate 91 Respiratory 16 Rate Blood Pressure 140/91 O2 Sat by Pulse 98 Oximetry Medical Decision Making - Medical Decision Making 31-year-old female presents to the emergency department with a chief complaint of headache find a head injury. This been no nausea vomiting she's been acting normally. CT at this time is negative. We discussed most likely concussion- like syndrome. We discussed halfway we discussed follow-up return parameters all questions. Patient stated that she understood and she is agreement plan. All questions have been answered. She will be discharged. - Radiology Data Radiology results: report reviewed, image reviewed Disposition Clinical Impression: Concussion without loss of consciousness Disposition: HOME SELF-CARE Condition: Stable Instructions: Concussion (ED) Additional Instructions: Please use medication as discussed. Please follow up with family doctor if symptoms have not improved over the next two days. Please return to the emergency room if your symptoms increase or worsen or for any other concerns. Referrals: Howard Moya III, MD [Primary Care Provider] - 1-2 days Time of Disposition: 15:22
--- NOTE | 2017-11-01 15:19 | CT ---
EXAMINATION TYPE: CT brain wo con DATE OF EXAM: 11/01/2017 COMPARISON: NONE HISTORY: Frontal head injury 3 days ago, headache since. CT DLP: 926.[address] of the brain was performed. The ventricles, basal cisterns and sulci overlying the cerebral convexities demonstrate a normal appe arance. There is no evidence for intracranial hemorrhage or sulcal effacement. No mass effects are seen. Osseous calvarium is intact. If symptoms persist consider MRI as clinically warranted. IMPRESSION: 1. No acute intracranial process is seen at this time.
== END 2017-11-01 15:30 | disposition home or self-care (01) ==
LOC: EC 14:27
DX: S06.0X0A Concussion without loss of consciousness, initial encounter (principal); F17.200 Nicotine dependence, unspecified, uncomplicated; Z79.899 Other long term (current) drug therapy; Z88.1 Allergy status to other antibiotic agents; Z88.0 Allergy status to penicillin; Z85.820 Personal history of malignant melanoma of skin; W22.03XA Walked into furniture, initial encounter; Y93.89 Activity, other specified
CPT/HCPCS: 70450; 99283

== ENCOUNTER → 2019-03-08 | Outpatient (CLI) | payer BC ==
--- NOTE | 2019-03-08 09:21 | US ---
EXAMINATION TYPE: US abdomen complete DATE OF EXAM: 03/08/2019 COMPARISON: US 10/27/2017 CLINICAL HISTORY: R19.7 Diarrhea,K82.4 Cholesterolosis of gallbladder. EXAM MEASUREMENTS: Liver Length: 14.5 cm Gallbladder Wall: 0.2 cm CBD: 0.3 cm Spleen: 6.3 cm Right Kidney: 9.6 X 3.7 X 4.8 cm Left Kidney: 11.6 X 5.2 X 4.2 cm Pancreas: Obscured by bowel gas Liver: wnl Gallbladder: wnl Evidence for sonographic Ferraro's sign: No CBD: wnl Spleen: wnl Right Kidney: No hydronephrosis or masses seen Left Kidney: No hydronephrosis. 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 The intrahepatic portion of the IVC and proximal abdominal aorta are within normal limits. There is no evidence of cholelithiasis. Common bile duct is unremarkable. The visu alized portions of the pancreas are homogenous. The spleen is unremarkable. Kidneys are symmetric a nd free of hydronephrosis, cortical medullary differentiation is maintained. No renal lesions are se en. IMPRESSION: No significant abnormality, some limitations. Previously identified luminal abnormality w ithin the gallbladder is not seen on today's exam
== END ==
LOC: RADUSWWP 08:04
PROVIDERS: ATTEND Family Medicine
DX: K82.4 Cholesterolosis of gallbladder (principal); R19.7 Diarrhea, unspecified
CPT/HCPCS: 76700

== ENCOUNTER → 2020-07-23 | Outpatient (CLI) | payer BC | END | disposition home or self-care (01) | LOC: LABWHC1 09:53 | PROVIDERS: ATTEND Family Medicine | DX: R05 Cough (principal) | CPT/HCPCS: U0003; C9803 ==

== ENCOUNTER → 2023-11-03 | Outpatient (CLI) | payer BC ==
--- NOTE | 2023-11-04 20:04 | MM ---
Reason for Exam: Screening (asymptomatic). Patient History: Menarche at age 11. First Full-Term at age 18. Hormonal Contraceptives, from age 14 until age 31. Risk Values: Ashleigh 5 year model risk: 0.3%. NCI Lifetime model risk: 7.4%. Tissue Density: The breast tissue is heterogeneously dense. This may lower the sensitivity of mammography. Findings: Analyzed By CAD. No significant mass, suspicious microcalcification, or other discrete abnormality is seen. Overall Assessment: Negative, BI-RAD 1 Management: Screening Mammogram of both breasts in 1 year. . Patient should continue monthly self-breast exams. A clinical breast exam by your physician is recommended on an annual basis. This exam should not preclude additional follow-up of suspicious palpable abnormalities. Note on Ashleigh scores and lifetime risk: 1. A Ashleigh score greater than 3% is considered moderate risk. If this is the case, consider specialist referral to assess eligibility for a risk reducing agent. 2. If overall lifetime risk for the development of breast cancer is 20% or higher, the patient may qualify for future screening with alternating mammogram and breast MRI. Electronically signed and approved by: Henrique Cuenca M.D. Radiologist
== END | disposition home or self-care (01) ==
LOC: RADMAMWWP 07:45
PROVIDERS: ATTEND Obstetrics & Gynecology
DX: Z12.31 Encounter for screening mammogram for malignant neoplasm of breast (principal)
CPT/HCPCS: 77067

== ENCOUNTER → 2023-11-25 | Outpatient (CLI) | payer BC ==
--- NOTE | 2023-11-25 13:13 | CT ---
EXAMINATION TYPE: CT abdomen pelvis w con CT DLP: 442.1 mGycm, Automated exposure control for dose reduction was used. DATE OF EXAM: 11/25/2023 12:33 PM COMPARISON: 10/16/2015 CLINICAL INDICATION:Female, 37 years old with history of R10.31 RLQ PAIN; RLQ abdominal pain with n/v . x 2 weeks TECHNIQUE: Axial CT abdomen pelvis w con;Sagittal and coronal reformats were created on a separate w orkstation. Contrast used:100cc mL of Isovue 300 with IV Contrast, (none if empty) Oral contrast used: with Oral Contrast (none if empty) FINDINGS: LOWER CHEST: Unremarkable ABDOMEN LIVER: Unremarkable GALLBLADDER AND BILE DUCTS: Unremarkable. PANCREAS: Unremarkable. SPLEEN: Unremarkable. ADRENAL GLANDS: Unremarkable. KIDNEYS AND URETERS: No evidence of hydronephrosis or renal calculus. The ureters are unremarkable. D uplicated left renal collecting system. PELVIS BLADDER: Unremarkable REPRODUCTIVE: A tampon is in the vagina. ABDOMEN & PELVIS STOMACH AND BOWEL: Mild circumferential wall thickening of the sigmoid colon with engorged vasa recta . No Evidence of bowel obstruction. The appendix is normal. PERITONEUM/RETROPERITONEUM: No evidence of pneumoperitoneum or free fluid. VASCULATURE: No evidence of aortic aneurysm. MUSCULOSKELETAL: No acute osseous abnormalities LYMPH NODES: No gross evidence for lymphadenopathy. SOFT TISSUE/ABDOMINAL WALL: Unremarkable IMPRESSION: 1. There is mild wall thickening of the sigmoid colon with hyperemia correlate for colitis. 2. The appendix is normal obstructive uropathy. 3. 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
== END | disposition home or self-care (01) ==
LOC: RADCTMAIN 10:36
PROVIDERS: ATTEND Family Medicine
DX: R10.31 Right lower quadrant pain (principal)
CPT/HCPCS: 74177; Q9967

== ENCOUNTER 2024-03-17 12:03 | Day surgery (SDC) | payer BC ==
[2024-03-15 12:39] VITALS: BMI 23.9
[2024-03-17] MEDS: IV FLUID CONTINUATION 1,000 ML IV ONE (12:39)
[2024-03-17] MEDS: LACTATED RINGERS 1,000 ML IV SCH (12:39)
[2024-03-17] MEDS ORDERED: fentaNYL (PF) 50 MCG/ML 2 ML AMP ONE (12:44)
[2024-03-17] MEDS ORDERED: MIDAZOLAM 2 MG/2 ML VIAL ONE (12:44)
[2024-03-17] MEDS ORDERED: PROPOFOL 10 MG/ML 20 ML VIAL IV ONE (12:44)
--- NOTE | 2024-03-17 13:02 | P.PCN ---
Date of Procedure: 03/17/24 Procedure(s) Performed: BRIEF HISTORY: Patient is a 38-year-old pleasant white female scheduled for an elective colonoscopy as a part of evaluation of chronic diarrhea for last 2 months duration. She is having 3-4 loose watery bowel movements daily but no blood or mucus in the stool. PROCEDURE PERFORMED: Colonoscopy with random biopsies. PREOPERATIVE DIAGNOSIS: Chronic diarrhea for 3 months duration. IV sedation per Anesthesia. PROCEDURE: After informed consent was obtained, the patient, was brought into the endoscopy unit. IV sedation was administered by Anesthesia under continuous monitoring. Digital rectal examination was normal. Initially the Olympus CF-160 flexible video colonoscope was then inserted in the rectum, gradually advanced into the cecum without any difficulty. Careful examination was performed as the scope was gradually being withdrawn. Ileocecal valve and the appendiceal orifice were visualized and appeared normal. Prep was excellent. Mucosa of the cecum, ascending colon, transverse colon, descending colon, sigmoid colon, and rectum appeared normal. Scattered sigmoid diverticulosis seen. In the distal rectum there were 2 polyps measuring 3 mm in size both of which were removed by cold biopsy. Biopsies were done from the ascending and descending colon to look microscopic/collagenous colitis. Retroflexion was performed in the rectum and no lesions were seen. The patient tolerated the procedure well. IMPRESSION: 3 mm x 2 rectal polyp status post cold biopsy Scattered sigmoid diverticulosis No evidence of colitis or ileitis RECOMMENDATIONS: Findings of this examination were discussed with the patient as well as her family. She was advised to follow-up with the biopsy results.. If the biopsy reveals adenoma she can have repeat colonoscopy in 5 years.
[2024-03-17 13:20] VITALS: RESP 16; TEMP 97.5
[2024-03-17 14:12] VITALS: BP 113/73; PULSE 61
== END 2024-03-17 13:39 | disposition home or self-care (01) ==
LOC: ORWHC2ENDO 12:03
PROVIDERS: ATTEND Internal Medicine Gastroenterology
DX: K62.1 Rectal polyp (principal); K57.30 Diverticulosis of large intestine without perforation or abscess without bleeding; K52.9 Noninfective gastroenteritis and colitis, unspecified; F41.9 Anxiety disorder, unspecified; F32.A Depression, unspecified; F17.290 Nicotine dependence, other tobacco product, uncomplicated; Z88.0 Allergy status to penicillin; Z88.1 Allergy status to other antibiotic agents; Z79.899 Other long term (current) drug therapy
CPT/HCPCS: 81025; 88305; 45380; J2250; J3010; J2704